=== PATIENT | male | born 1945 | race Caucasian/White ===

== ENCOUNTER → 2017-01-24 | Outpatient (CLI) | payer MEDICARE, BC ==
[~2017-01-24] MED LIST: ACAR50TA PO; ALPR.5 PO; AMBI12.5 PO; AMLO5TAB22 PO; CEFA2SOL IV; CHOL50006 PO; CLON1 PO; COZA50TA PO; CYMB30CA PO; DIPH50IN2 IV; EPIN1INJ20 SQ/IV; GLUC1000 PO; HYDR250P IVP; IRON325T2 PO; LAMO100 PO; LANTUS2P SC; LORTA5 PO; LOVA40TA PO; NATE120T PO; NEXI40CA PO; RIFA300C37 PO; ROPI0.25 PO; ST J81CH PO; TAMS0.4C4 PO; VITA100017 PO; VITA100020 PO; WELL150T PO
--- NOTE | 2017-01-24 16:47 | RADRPT ---
EXAM DATE/TIME: 01/24/2017 13:44 [place] COMPARISON: No previous studies available for comparison. INDICATIONS : Ataxia and essential tremors. DOSE: 4.3 mCi Ioflupane Iodine-123 in 2.5 ml total volume MEDICATION(S): 130 mg Potasium Iodine PO one hour prior to injection SPECT IMAGIN hrs, 30 min IMAGNG: SPECT/CT imaging with fusion was performed. RADIATION DOSE: 30.27 CTDIvol (mGy) MEDICAL HISTORY : Diabetes mellitus type 2. Hypertension. Benign prostatic hyperplasia, (BPH) SURGICAL HISTORY : Fusion, cervical. ENCOUNTER: [employer] ACUITY: 3 months PAIN SCALE: 0/10 LOCATION: cranial TECHNIQUE: SPECT imaging of the brain was performed in sagittal, axial and coronal planes. Attenuation correctio n was performed with computed tomography and both the attenuation correction and non-attenuation mendoza ected data sets were reviewed. FINDINGS: There is normal biodistribution of radionuclide with symmetric crescent-shaped areas of activity are in the striatum which appears distinct relative to the surrounding brain tissue. Old lacunar type inf arct in the inferior left basal. CONCLUSION: 1. Normal distribution of radiotracer. Patient's tremor and ataxia do not appear to be dopamine relat ed. 2. 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 Fred Yo MD on January 24, 2017 at 16:20 Board Certified Radiologist. This report was verified electronically.
== END ==
LOC: HRAD 09:18
PROVIDERS: ATTEND Specialist
DX: G20 Parkinson's disease (principal); R27.0 Ataxia, unspecified
CPT/HCPCS: 78607; A9584